=== PATIENT | male | born 1965 | race Caucasian/White ===

== ENCOUNTER 2016-11-27 11:58 | Inpatient (IN) | payer MEDICARE, MEDICAID ==
[~2016-11-27] VITALS: Ht 185.4 cm; Wt 92.9 kg
[~2016-11-27 11:58] MED LIST: DIVA125T2 PO; LISI-170 PO; SIMV5TAB5 PO
[2016-11-27] MEDS ORDERED: DIVA500T2 PO (13:28)
[2016-11-27] MEDS ORDERED: LISI1TAB7 PO (13:28)
[2016-11-27] MEDS ORDERED: ATOR20TA9 PO (13:28)
[2016-11-27] MEDS ORDERED: SODIUM CHLORIDE FLUSH 10ML SYR IVF ONE (13:30)
[2016-11-27] MEDS ORDERED: ONDANSETRON 2MG/ML, 2ML IVPush ONE (13:30)
[2016-11-27] MEDS ORDERED: HYDROmorphone 1 MG/ML, 1ML IVPush PRN (13:30)
[2016-11-27] MEDS ORDERED: SODIUM CHLORIDE 0.9% 1,000ML IVBOLUS ONE (13:30)
[2016-11-27 13:53] LABS: ASPARTATE AMINO TRANSFERASE 19 U/L (15-37); BLOOD UREA NITROGEN 17 mg/dL (7-18)
[2016-11-27] MEDS ORDERED: HYDROmorphone 1 MG/ML, 1ML ONE ×2 (14:28→16:24)
[2016-11-27] MEDS ORDERED: ONDANSETRON 2MG/ML, 2ML ONE (14:28)
[2016-11-27] MEDS ORDERED: OMNIPAQUE 350 MG/ML, 100ML BOTTLE ONE (14:58)
[2016-11-27] MEDS ORDERED: CEFOTETAN PMX 2GM/50ML 50 ML IV ONE (15:30)
[2016-11-27] MEDS ORDERED: METRONIDAZOLE PMX 500MG/100ML 100 ML IV ONE (15:30)
[2016-11-27] MEDS ORDERED: MORPHINE SULFATE 4 MG/ML, 1ML ONE (16:27)
[2016-11-27] MEDS ORDERED: ACETAMINOPHEN 325 MG TABLET PO PRN (16:30)
[2016-11-27] MEDS ORDERED: LABETALOL 5MG/ML, 20ML IVPush PRN (16:30)
[2016-11-27] MEDS ORDERED: HYDROcodone/APAP 5/325 TABLET PO PRN (16:30)
[2016-11-27] MEDS ORDERED: ONDANSETRON 2MG/ML, 2ML IVP PRN (16:30)
[2016-11-27] MEDS ORDERED: DIVALPROEX 125 MG TABLET.DR PO SCH (16:30)
[2016-11-27] MEDS ORDERED: POLYETHYLENE GLYCOL 17 GM PACKET PO PRN (16:30)
[2016-11-27] MEDS ORDERED: ENALAPRILAT 1.25 MG/ML, 2ML IV PRN (16:30)
[2016-11-27] MEDS ORDERED: DOCUSATE 100 MG CAPSULE PO PRN (16:30)
[2016-11-27] MEDS ORDERED: hydrALAzine 20 MG/ML, 1ML IV PRN (16:30)
[2016-11-27] MEDS: MORPHINE SULFATE 4 MG/ML, 1ML IVPush PRN ×2 (16:32→19:45)
[2016-11-27] MEDS: CEFOTETAN PMX 2GM/50ML 50 ML IV SCH (16:33)
[2016-11-27 17:19] VITALS: BP 126/83
[2016-11-27] MEDS: METRONIDAZOLE PMX 500MG/100ML 100 ML IV SCH (18:28)
[2016-11-27] MEDS: NS + 20MEQ KCL 1,000 ML IV SCH (18:28)
[2016-11-27 19:06] VITALS: BP 128/73
[2016-11-27] MEDS: DIVALPROEX 500 MG TABLET.DR PO SCH (19:45)
[2016-11-28] MEDS: MORPHINE SULFATE 4 MG/ML, 1ML IVPush PRN ×6 (00:02→23:12)
[2016-11-28 01:14] VITALS: BP 107/71
[2016-11-28] MEDS: METRONIDAZOLE PMX 500MG/100ML 100 ML IV SCH ×3 (02:06→18:17)
[2016-11-28] MEDS: NS + 20MEQ KCL 1,000 ML IV SCH (02:06)
[2016-11-28] MEDS: CEFOTETAN PMX 2GM/50ML 50 ML IV SCH ×2 (04:29→17:34)
[2016-11-28 05:31] LABS: BLOOD UREA NITROGEN 14 mg/dL (7-18)
[2016-11-28 07:48] VITALS: BP 119/73
[2016-11-28] MEDS ORDERED: TEMPLATE NON-FORMULARY MED. (Lisinopril/Hydrochlorothiazide** (Lisinopril-Hctz 20-25 Mg Ta PO SCH (09:00)
[2016-11-28] MEDS: HYDROCHLOROTHIAZIDE 25 MG TABLET PO SCH (09:33)
[2016-11-28] MEDS: LISINOPRIL 20 MG TABLET PO SCH (09:34)
[2016-11-28] MEDS: ATORVASTATIN 20 MG TABLET PO SCH (09:34)
[2016-11-28 13:00] VITALS: BP 124/76
[2016-11-28 19:22] VITALS: BP 107/70
[2016-11-28] MEDS: DIVALPROEX 500 MG TABLET.DR PO SCH (19:28)
[2016-11-29] MEDS: METRONIDAZOLE PMX 500MG/100ML 100 ML IV SCH ×4 (01:25→18:18)
[2016-11-29 03:25] VITALS: BP 99/57
[2016-11-29] MEDS: CEFOTETAN PMX 2GM/50ML 50 ML IV SCH ×2 (04:11→16:11)
[2016-11-29 07:29] VITALS: BP 106/76
[2016-11-29] MEDS: LISINOPRIL 20 MG TABLET PO SCH (09:00)
[2016-11-29] MEDS: HYDROCHLOROTHIAZIDE 25 MG TABLET PO SCH (09:00)
[2016-11-29 09:37] VITALS: BP 104/68
[2016-11-29 13:30] VITALS: BP 111/76
[2016-11-29 19:31] VITALS: BP 133/74
[2016-11-29] MEDS: ATORVASTATIN 20 MG TABLET PO SCH (21:03)
[2016-11-29] MEDS: DIVALPROEX 500 MG TABLET.DR PO SCH (21:04)
[2016-11-30 00:25] VITALS: BP 121/70
[2016-11-30] MEDS: METRONIDAZOLE PMX 500MG/100ML 100 ML IV SCH ×3 (00:58→17:44)
[2016-11-30] MEDS: CEFOTETAN PMX 2GM/50ML 50 ML IV SCH ×2 (04:30→17:18)
[2016-11-30 07:07] VITALS: BP 124/86
[2016-11-30] MEDS: LISINOPRIL 20 MG TABLET PO SCH (08:57)
[2016-11-30] MEDS: HYDROCHLOROTHIAZIDE 25 MG TABLET PO SCH (08:58)
[2016-11-30] MEDS: ATORVASTATIN 20 MG TABLET PO SCH (08:58)
[2016-11-30 13:47] VITALS: BP 153/86
[2016-11-30 18:48] VITALS: BP 133/82
[2016-11-30] MEDS: DIVALPROEX 500 MG TABLET.DR PO SCH (20:22)
[2016-12-01 01:13] VITALS: BP 121/77
[2016-12-01] MEDS: METRONIDAZOLE PMX 500MG/100ML 100 ML IV SCH ×2 (01:42→09:08)
[2016-12-01] MEDS: CEFOTETAN PMX 2GM/50ML 50 ML IV SCH (05:16)
[2016-12-01 07:19] VITALS: BP 126/82
[2016-12-01] MEDS: LISINOPRIL 20 MG TABLET PO SCH (09:01)
[2016-12-01] MEDS: HYDROCHLOROTHIAZIDE 25 MG TABLET PO SCH (09:02)
[2016-12-01] MEDS: ATORVASTATIN 20 MG TABLET PO SCH (09:02)
[2016-12-01] MEDS ORDERED: CIPR500T3 PO (12:28)
[2016-12-01] MEDS ORDERED: HYDR-3240 PO (12:28)
[2016-12-01] MEDS ORDERED: METR500T PO (12:28)
[2016-12-01 13:05] VITALS: BP 117/80
== END 2016-12-01 14:00 | disposition home or self-care (01) | DRG 386 ==
LOC: ED 15:15 → EDIP 15:16 → ED 15:42 → SUATTDRO 16:06 → 3NE 17:06
PROVIDERS: ADMIT Family Medicine; ATTEND Family Medicine
DX: K51.50 Left sided colitis without complications (principal); K92.2 Gastrointestinal hemorrhage, unspecified; I10 Essential (primary) hypertension; E78.5 Hyperlipidemia, unspecified; M19.90 Unspecified osteoarthritis, unspecified site; E86.0 Dehydration; F12.90 Cannabis use, unspecified, uncomplicated; Z88.0 Allergy status to penicillin
CPT/HCPCS: 36415; 74177; 80048; 80053; 81003; 82962; 83605; 84145; 85025; 85610; 85730; 87040; 87324; 89055; 96361; 96374; 96375; J1170; J2405; J3480; Q9967; J7030; S0074

== ENCOUNTER 2016-12-06 12:29 | Emergency (ER) | payer MEDICARE, MEDICAID ==
[~2016-12-06] VITALS: Ht 185.4 cm; Wt 92.9 kg
[~2016-12-06 12:29] MED LIST changes: +ATOR20TA9 PO; +CIPR500T3 PO; +DIVA500T2 PO; +HYDR-3240 PO; +LISI1TAB7 PO; +METR500T PO
[2016-12-06 12:33] VITALS: BP 128/78
[2016-12-06 13:53] LABS: BLOOD UREA NITROGEN 18 mg/dL (7-18)
== END 2016-12-06 15:22 | disposition home or self-care (01) ==
LOC: ED 15:16
DX: L03.113 Cellulitis of right upper limb (principal); I10 Essential (primary) hypertension
CPT/HCPCS: 36415; 80048; 82040; 83605; 85025; 87040; 99285

== ENCOUNTER 2018-05-23 20:45 | Emergency (ER) | payer MEDICARE, MEDICAID ==
[~2018-05-23] VITALS: Ht 185.4 cm; Wt 88.1 kg
[2018-05-23 20:47] VITALS: BP 138/90
[2018-05-23] MEDS ORDERED: HEPATITIS B VACCINE/PF 20MCG/ML INJ IM-VACC ONE (22:00)
== END 2018-05-23 22:30 | disposition home or self-care (01) ==
LOC: ED 21:41
DX: S61.237A Puncture wound without foreign body of left little finger without damage to nail, initial encounter (principal); W46.0XXA Contact with hypodermic needle, initial encounter; Y93.89 Activity, other specified; Y99.8 Other external cause status; Y92.89 Other specified places as the place of occurrence of the external cause
CPT/HCPCS: 36415; 82962; 84460; 86706; 86803; 87340; 87806; 90471; 90746; G0475

== ENCOUNTER 2019-03-12 20:11 | Emergency (ER) | payer MEDICARE, MEDICAID ==
[~2019-03-12] VITALS: Ht 188 cm; Wt 93.8 kg
[2019-03-12 20:24] VITALS: BP 113/78
== END 2019-03-12 22:51 | disposition left against medical advice (07) ==
LOC: ED 22:45
DX: S81.852A Open bite, left lower leg, initial encounter (principal); W54.0XXA Bitten by dog, initial encounter; Y93.89 Activity, other specified; Y92.89 Other specified places as the place of occurrence of the external cause; Y99.8 Other external cause status
CPT/HCPCS: 99283

== ENCOUNTER 2019-08-03 23:19 | Emergency (ER) | payer MEDICARE, MEDICAID ==
[~2019-08-03] VITALS: Ht 190.5 cm; Wt 96.5 kg
[~2019-08-03 23:19] MED LIST changes: +ATOR20TA37 PO; -ATOR20TA9 PO; +LISI1TAB20 PO; -LISI1TAB7 PO; +SIMV5TAB14 PO; -SIMV5TAB5 PO
[2019-08-03 23:27] VITALS: BP 166/93
[2019-08-03] MEDS ORDERED: KETOROLAC 30 MG/1 ML ONE (23:51)
[2019-08-04] MEDS ORDERED: KETOROLAC 30 MG/1 ML IM ONE
== END 2019-08-04 02:14 | disposition home or self-care (01) ==
LOC: ED 23:56
DX: G89.11 Acute pain due to trauma (principal); M25.531 Pain in right wrist; W01.0XXA Fall on same level from slipping, tripping and stumbling without subsequent striking against object, initial encounter; Y93.89 Activity, other specified; Y92.009 Unspecified place in unspecified non-institutional (private) residence as the place of occurrence of the external cause; Y99.8 Other external cause status
CPT/HCPCS: 29125; 73110; 73130; 96372; 99283; J1885

== ENCOUNTER 2020-08-20 13:30 | Emergency (ER) | payer MEDICAID, MEDICARE ==
[~2020-08-20] VITALS: Ht 185.4 cm; Wt 98.0 kg
[~2020-08-20 13:30] MED LIST changes: +HYDR-1067 PO; -HYDR-3240 PO
[2020-08-20] MEDS ORDERED: BUPIVACAINE 0.25% ONE (14:32)
[2020-08-20] MEDS ORDERED: LIDOCAINE-MPF 1%, 5ML ONE (14:32)
--- NOTE | 2020-08-20 14:45 | NUR ---
RESIDENT IN TO CLEAN AND SUTURE.
[2020-08-20] MEDS ORDERED: BUPIVACAINE/PF-EPI 0.25% 1:200K SQ ONE (15:00)
[2020-08-20] MEDS ORDERED: LIDOCAINE 1%-EPI 1:100K, 20ML SQ ONE (15:00)
[2020-08-20] MEDS ORDERED: NEOSPORIN OINT. PKT 1 PACKET ONE (15:49)
[2020-08-20] MEDS ORDERED: CEPHALEXIN 500 MG CAPSULE PO ONE (16:00)
[2020-08-20] MEDS ORDERED: CEPHALEXIN 500 MG CAPSULE ONE (16:04)
--- NOTE | 2020-08-20 16:07 | NUR ---
MED PROVIDED PER ERP ORDER.
[2020-08-20 16:52] VITALS: BP 122/61
== END 2020-08-20 16:54 | disposition home or self-care (01) ==
LOC: ED 16:19
DX: S81.811A Laceration without foreign body, right lower leg, initial encounter (principal); F41.9 Anxiety disorder, unspecified; X58.XXXA Exposure to other specified factors, initial encounter; Y93.89 Activity, other specified; Y92.89 Other specified places as the place of occurrence of the external cause; Y99.8 Other external cause status
CPT/HCPCS: 12041; 99284

== ENCOUNTER 2020-09-03 11:01 | Emergency (ER) | payer MEDICARE, MEDICAID ==
[~2020-09-03] VITALS: Ht 185.4 cm; Wt 96.9 kg
[~2020-09-03 11:01] MED LIST changes: -CIPR500T3 PO; +CIPR500T4 PO
[2020-09-03 11:21] VITALS: BP 114/89
--- NOTE | 2020-09-03 12:04 | NUR ---
PT HERE FOR SUTURE REMOVAL OF R LEG. SUTURES REMOVED AND STERI STRIPS APPLIED.
== END 2020-09-03 12:23 | disposition home or self-care (01) ==
LOC: ED 12:21
DX: S81.811D Laceration without foreign body, right lower leg, subsequent encounter (principal); I10 Essential (primary) hypertension; E78.5 Hyperlipidemia, unspecified; Z48.02 Encounter for removal of sutures; X58.XXXD Exposure to other specified factors, subsequent encounter
CPT/HCPCS: 99282

== ENCOUNTER 2020-09-16 22:11 | Emergency (ER) | payer MEDICARE, MEDICAID ==
[~2020-09-16] VITALS: Ht 185.4 cm; Wt 99.4 kg
[2020-09-16 22:22] VITALS: BP 161/76
[2020-09-16] MEDS ORDERED: NEOSPORIN OINT. PKT 1 PACKET ONE (22:28)
--- NOTE | 2020-09-16 22:34 | NUR ---
Patient given discharge instructions and they have confirmed that they understand the instructions. Patient ambulatory with steady gait. NAD, ALL QUESTIONS ANSWERED APPROPRIATELY, DENIES ADDITIONAL NEEDS, NO PERSONAL BELONGINGS LEFT IN TRIAGE ROOM AFTER DC. WOUND DRESSED.
== END 2020-09-16 22:46 | disposition home or self-care (01) ==
LOC: ED 22:31
DX: L03.115 Cellulitis of right lower limb (principal); M79.661 Pain in right lower leg; E78.5 Hyperlipidemia, unspecified; I10 Essential (primary) hypertension; M79.89 Other specified soft tissue disorders; Z48.02 Encounter for removal of sutures
CPT/HCPCS: 99283

== ENCOUNTER 2020-10-03 20:57 | Emergency (ER) | payer MEDICARE, MEDICAID ==
[~2020-10-03] VITALS: Ht 185.4 cm; Wt 99.2 kg
[2020-10-03 21:03] VITALS: BP 151/87
[2020-10-03] MEDS ORDERED: NEOSPORIN OINT. PKT 1 PACKET ONE ×2 (21:25→21:29)
--- NOTE | 2020-10-03 21:46 | NUR ---
DRESSING ALREADY IN PLACE ON RN ENTERING ROOM. PATIENT STATES THIS WAS DONE BY A TECH. CLEAN DRESSING VISUALIZED. DISCHARGE INSTRUCTIONS REVIEWED WITH PATIENT. PRESCRIPTION HANDED DIRECTLY TO PATIENT. NO FURTHER QUESTIONS. STEADY GAIT TO LOBBY. NO IV PLACED DURING THIS ER VISIT.
== END 2020-10-03 21:52 ==
LOC: ED 21:51
DX: L03.115 Cellulitis of right lower limb (principal); I10 Essential (primary) hypertension; E78.5 Hyperlipidemia, unspecified
CPT/HCPCS: 99283

== ENCOUNTER 2020-12-07 21:44 | Emergency (ER) | payer MEDICARE, MEDICAID ==
[~2020-12-07] VITALS: Ht 185.4 cm; Wt 105.0 kg
[~2020-12-07 21:44] MED LIST changes: -HYDR-1067 PO; +HYDR-2214 PO
--- NOTE | 2020-12-07 22:35 | NUR ---
Pt states "I just remembered, I think I fell on that shoulder today". Pt states he may have tripped while opening the door earlier today and landed on his left shoulder. Pt says he sometimes has problems with falls and memory. ERP informed, shoulder xray was ordered. Pt denies any other injuries. VSS, remains NSR no ectopy.
[2020-12-07 23:03] LABS: BASOPHILS % (AUTO) 1 % (0-1); EOSINOPHILS % (AUTO) 2 % (1-7); LYMPHOCYTES % (AUTO) 31 % (22-44); MD NO; MEAN CORPUSCULAR HEMOGLOBIN 30.2 pg (27.5-34.5); MEAN CORPUSCULAR HGB CONC 33.6 g/dL (33.2-36.2); MEAN PLATELET VOLUME 7.7 fL (7.4-10.4); MONOCYTES % (AUTO) 8 % (2-9); NEUTROPHILS % (AUTO) 58 % (42-75); PLATELET COUNT 267 x10^3/uL (130-400); RED BLOOD COUNT 5.07 x10^6/uL (4.38-5.82); RED CELL DISTRIBUTION WIDTH 13.4 % (9.4-14.8)
[2020-12-07 23:11] LABS: ALBUMIN 3.8 g/dL (3.4-5.0); ANION GAP 5 mmol/L (5-15); CALCIUM 8.7 mg/dL (8.5-10.1); CHLORIDE 109 mmol/L (98-107)
[2020-12-07 23:16] LABS: TROPONIN I < 0.015 ng/mL (0.000-0.045)
[2020-12-08 00:32] VITALS: BP 136/91
== END 2020-12-08 00:35 | disposition home or self-care (01) ==
LOC: ED 23:04
DX: G89.11 Acute pain due to trauma (principal); M25.512 Pain in left shoulder; R07.89 Other chest pain; R94.31 Abnormal electrocardiogram [ECG] [EKG]; I10 Essential (primary) hypertension; E78.5 Hyperlipidemia, unspecified; Z87.891 Personal history of nicotine dependence
CPT/HCPCS: 36415; 71045; 80048; 82040; 84484; 85025; 93005; 99285

== ENCOUNTER 2021-03-30 20:46 | Emergency (ER) | payer MEDICARE, MEDICAID ==
--- NOTE | 2021-03-30 21:37 | NUR ---
CAR WASHER: PT. SIGNED OUT PRIOR TO BEING TRIAGED.
== END 2021-03-30 21:39 | disposition left against medical advice (07) ==
LOC: ED 21:00
DX: M25.531 Pain in right wrist (principal); Z53.21 Procedure and treatment not carried out due to patient leaving prior to being seen by health care provider

== ENCOUNTER 2021-04-26 11:46 | Emergency (ER) | payer MEDICARE, MEDICAID ==
[~2021-04-26] VITALS: Ht 185.4 cm; Wt 101.4 kg
[2021-04-26 12:03] VITALS: BP 155/95
--- NOTE | 2021-04-26 12:47 | NUR ---
PT AMBULATES BACK TO ED ROOM INDEPENDENTLY. NAD NOTED AT THIS TIME. RESPIRATIONS EVEN AND UNLABORED ON RA. PT INSTRUCTED TO REMOVE PANTS AND REST IN BED FOR ER PROVIDER ASSESSMENT.
--- NOTE | 2021-04-26 14:00 | NUR ---
PT RESTING BACK IN BED, RESPIRATIONS EVEN AND UNLABORED ON RA. NAD NOTED AT THIS TIME.
--- NOTE | 2021-04-26 15:08 | NUR ---
REPORT TO DIANE. PT SITTING UP IN BED, RESPIRATIONS EVEN AND UNLABORED ON RA.
--- NOTE | 2021-04-26 15:14 | NUR ---
REPORT FROM NILAY THOMAS, ASSUMING CARE OF PT AT THIS TIME.
--- NOTE | 2021-04-26 15:50 | NUR ---
PT EDUCATED ON DC INSTRUCTIONS, VERBALIZED UNDERSTANDING. AMBULATORY TO DC DESK WITH STEADY GAIT.
== END 2021-04-26 16:11 | disposition home or self-care (01) ==
LOC: ED 11:53
DX: M71.22 Synovial cyst of popliteal space [Baker], left knee (principal); Z88.0 Allergy status to penicillin; W18.30XA Fall on same level, unspecified, initial encounter; Y93.89 Activity, other specified; Y92.009 Unspecified place in unspecified non-institutional (private) residence as the place of occurrence of the external cause; Y99.8 Other external cause status
CPT/HCPCS: 99284